=== PATIENT | male | born 2000 | race Caucasian/White ===

== ENCOUNTER → 2021-03-09 10:23 | Outpatient (CLI) | payer OTHER, SELFPAY ==
[2021-03-09 15:15] LABS: Influenza Control Positive
[2021-03-09 21:02] LABS: SARS-CoV-2 RNA PCR Negative
== END ==
PROVIDERS: PCP Family Medicine; Visit Provider Physician Assistant
DX: R50.9 Fever, unspecified (principal); Z20.822 Contact with and (suspected) exposure to COVID-19
CPT/HCPCS: 87804; C9803; U0003; U0005

== ENCOUNTER 2021-12-15 22:01 | Emergency (ER) | payer OTHER, SELFPAY ==
[2021-12-15 22:21] VITALS: BP 136/71; PULSE 110; RESP 20; TEMP 36.6; O2SAT 100
[2021-12-16] MEDS: ACETAMINOPHEN 500 MG TABLET 1000 MG PO (00:59)
--- NOTE | 2021-12-16 01:07 | ED.URI ---
HPI - URI/Sore Throat General Chief Complaint: Upper Respiratory Infection Stated Complaint: cold/flu Time Seen by Provider: 12/16/21 00:04 History of Present Illness HPI Narrative: This is a 21-year-old male with reported history of asthma, presenting the emergency department complaining of myalgias and malaise for the past day. He reports that his parents are recently diagnosed with COVID and he believes he has the same. He complains of generalized weakness, muscle aches and fatigue. He denies loss of consciousness, chest pain, shortness of breath, or diarrhea. Related Data Home Medications Medication Instructions Recorded Confirmed desvenlafaxine succinate 50 mg 50 mg PO DAILY 10/15/21 10/15/21 tablet,extended release 24 hr (Pristiq) Allergies Allergy/AdvReac Type Severity Reaction Status Date / Time No Known Allergies Allergy Mild Verified 10/15/21 11:20 methylphenidate Allergy Unknown Unknown Verified 10/15/21 11:20 Review of Systems Review of Systems: CONSTITUTIONAL: Fatigue, fevers and chills denies or sweats. EYES: Denies visual changes, redness, or discharge. ENT: Denies rhinorrhea, congestion, sore throat, or otalgia. CARDIOVASCULAR: Denies chest pain, palpitations, or edema. RESPIRATORY: Denies cough or dyspnea. GASTROINTESTINAL: Denies abdominal pain, nausea, vomiting, or diarrhea. GENITOURINARY: Denies dysuria or hematuria. SKIN: Denies rash or itching. MUSCULOSKELETAL: Denies back pain, joint pain, or myalgia. NEUROLOGIC: Denies headache, numbness, dizziness, or weakness. PSYCHIATRIC: Denies anxiety or depression. [facility] Past Medical History Medical History (Updated 12/17/21 @ 00:00 by Angelina Toledo) Vitamin D deficiency Family History Family History Mother Patient's mother is in good health Father Patient's father is in good health Social History Social History (Updated 10/15/21 @ 11:19 by Juana Crawford [facility]) Smoking status: Never smoker Second hand tobacco smoke exposure: No Alcohol intake: never Substance use: never Substance use type: does not use Gender identity (if verbalized by the patient): Male Spiritual care concerns: No Agree to blood products: Yes Exam Narrative: GENERAL: Well-developed, well-nourished, appears uncomfortable HEAD: Normocephalic, atraumatic. EYES: PERRLA and EOMI. ENT: Nares clear, no rhinorrhea or epistaxis. Mucous membranes moist. Oropharynx without tonsillar hypertrophy exudate or other lesions. NECK: Supple. No adenopathy or masses. No carotid bruits or JVD CHEST: Clear to auscultation. No respiratory distress. No wheezes rales or rhonchi HEART: Regular rate and rhythm. No murmur heard. Normal peripheral pulses. ABDOMEN: Soft, nontender, nondistended, normal active bowel sounds. EXTREMITIES: Normal range of motion. No edema. SKIN: Warm, dry, no rash. NEURO: No focal deficits. Alert and oriented x3. PSYCH: Normal mood and affect. Course Vital Signs Vital signs: Vital Signs Temperature 97.9 F 12/15/21 22:21 Pulse Rate 110 H 12/15/21 22:21 Respiratory Rate 20 12/15/21 22:21 Blood Pressure 136/71 12/15/21 22:21 Pulse Oximetry 100 12/15/21 22:21 Oxygen Delivery Room Air 12/15/21 22:21 Temperature 97.9 F 12/15/21 22:21 Pulse Rate 88 12/16/21 02:15 Respiratory Rate 20 12/15/21 22:21 Blood Pressure 136/71 12/15/21 22:21 Pulse Oximetry 98 12/16/21 02:15 Oxygen Delivery Room Air 12/16/21 02:03 MDM - URI/Sore Throat MDM Narrative Medical decision making narrative: Plan: Pain control, influenza and COVID testing, reassess Differential Diagnosis Differential diagnosis: Likely influenza and other (Viral URI, COVID, other) Lab Data Labs: Lab Results 12/16/21 Range/Units 01:01 Influenza A (RT-PCR) Negative (Negative) Influenza B (RT-PCR) Negative (Negative) SARS-CoV-2 RNA (RT-PCR) Positive A
[2021-12-16 01:42] LABS: Influenza A QL RT-PCR Negative (Negative); Influenza B QL RT-PCR Negative (Negative); SARS-CoV-2 RNA PCR Positive
[2021-12-16 02:03] VITALS: O2SAT 97
[2021-12-16 02:15] VITALS: PULSE 88; O2SAT 98
== END 2021-12-16 02:17 | disposition home or self-care (01) ==
PROVIDERS: Emergency Provider Preventive Medicine Aerospace Medicine; PCP Family Medicine
DX: U07.1 COVID-19 (principal); M79.10 Myalgia, unspecified site; E55.9 Vitamin D deficiency, unspecified
CPT/HCPCS: 87502; 99283; A9270; C9803; U0003; U0005

== ENCOUNTER 2022-10-15 13:41 | Emergency (ER) | payer OTHER, SELFPAY ==
[2022-10-15 13:48] VITALS: BP 140/86; PULSE 69; RESP 20; TEMP 36.4; O2SAT 100
--- NOTE | 2022-10-15 14:00 | ED.SKABFB ---
HPI - Skin/Abscess/Foreign Bdy General Chief complaint: Skin/Abscess/Foreign Body Stated complaint: Wasp sting Time Seen by Provider: 10/15/22 13:53 Source: patient and RN notes reviewed Mode of arrival: ambulatory Limitations: no limitations History of Present Illness HPI narrative: Patient presents today complaining of wasps stings to his left hand that occurred 2 days ago when he was carrying an air conditioning unit. He was stung 3 times on the hand and 2nd finger. His hand and wrist have continued to swell since then. He has been taking Benadryl without relief. Denies shortness of breath, difficulty swallowing, facial swelling, or any additional symptoms. Related Data Home Medications Medication Instructions Recorded Confirmed desvenlafaxine succinate 50 mg 50 mg PO DAILY 10/15/21 10/15/22 tablet,extended release 24 hr (Pristiq) Allergies Allergy/AdvReac Type Severity Reaction Status Date / Time methylphenidate Allergy Unknown Unknown Verified 10/15/21 11:20 Review of Systems Review of Systems: CONSTITUTIONAL: Denies body aches, fever, chills, or sweats. EYES: Denies visual changes, redness, or discharge. ENT: Denies rhinorrhea, congestion, sore throat, or otalgia. CARDIOVASCULAR: Denies chest pain, palpitations, or edema. RESPIRATORY: Denies cough or dyspnea. GASTROINTESTINAL: Denies abdominal pain, nausea, vomiting, or diarrhea. GENITOURINARY: Denies dysuria or hematuria. SKIN: + insect stings, hand and wrist swelling MUSCULOSKELETAL: Denies back pain, joint pain, or myalgia. NEUROLOGIC: Denies headache, numbness, tingling, or weakness. PSYCH: Denies depression or anxiety. [facility] Past Medical History Medical History Vitamin D deficiency Family History Family History Mother Patient's mother is in good health Father Patient's father is in good health Social History Social History Smoking status: Never smoker Second hand tobacco smoke exposure: No Alcohol intake: never Substance use: never Substance use type: does not use Living arrangements: with family Gender identity (if verbalized by the patient): Male Spiritual care concerns: No Agree to blood products: Yes Comments At time of signature, I have reviewed and agree with nursing past medical, surgical, social and family history unless otherwise noted. Please see nursing chart for further information. There is no relevant family history pertinent to the presenting complaint Exam Narrative: GENERAL: Well-appearing, well-nourished, and in no acute distress. HEAD: Normocephalic, atraumatic. EYES: EOMI. No redness or drainage. Conjunctivae normal. ENT: Mucous membranes pink and moist. NECK: Normal AROM. CHEST: No respiratory distress. EXTREMITIES: Left hand and wrist: Patient has 1 sting to the base of the 1st finger the dorsum of the hand, 1 sting to 2nd finger, and 1 sting to the lateral 5th metacarpal. He has swelling to all 5 fingers, the entirety of the hand, and this extends past the distal wrist. Swelling is moderate. No erythema. Range of motion is limited due to swelling. Distal sensation intact in all 5 fingers. Capillary refill normal. No induration noted. No signs of bacterial infection noted. SKIN: Warm, dry. Capillary refill normal. Normal skin turgor. NEURO: No focal deficits. Alert and oriented x3. Gait steady. PSYCH: Normal affect. No signs of depression or anxiety. Course Course Level of Care: Express Care Visit Vital Signs Vital signs: Vital Signs Temperature 97.6 F 10/15/22 13:48 Pulse Rate 69 10/15/22 13:48 Respiratory Rate 20 10/15/22 13:48 Blood Pressure 140/86 10/15/22 13:48 Pulse Oximetry 100 10/15/22 13:48 Oxygen Delivery Room Air 10/15/22 13:48 Temperature
== END 2022-10-15 14:15 | disposition home or self-care (01) ==
PROVIDERS: Emergency Provider Nurse Practitioner; PCP Family Medicine
DX: T63.461A Toxic effect of venom of wasps, accidental (unintentional), initial encounter (principal)
CPT/HCPCS: 96372; 99213; G0463; J1100

== ENCOUNTER → 2023-03-15 14:32 | Outpatient (CLI) | payer OTHER, SELFPAY ==
--- NOTE | ~2023-03-15 | XR_ITS ---
EXAMINATION: XR knee LT 3V DATE: 03/15/2023 15:00 INDICATION: Left knee pain. TECHNIQUE: 3 views of left knee were obtained. COMPARISON: None. FINDINGS: Bone alignment is normal. No fracture. Joint spaces are normal. No knee joint effusion. The re is prepatellar soft tissue swelling. IMPRESSION: 1. Prepatellar soft tissue swelling, consistent with bursitis. Reviewed, dictated and finalized at location [facility] [employer]
== END ==
PROVIDERS: PCP Physician Assistant; Visit Provider Physician Assistant
DX: M25.562 Pain in left knee (principal)
CPT/HCPCS: 73562

== ENCOUNTER 2023-04-21 12:08 | Emergency (ER) | payer OTHER, SELFPAY ==
[2023-04-21 12:19] VITALS: BP 122/82; PULSE 95; RESP 20; TEMP 36.7; O2SAT 100
--- NOTE | 2023-04-21 12:49 | ED.URI ---
HPI - URI/Sore Throat General Chief Complaint: Upper Respiratory Infection Stated Complaint: Cough/Short Of Breath Time Seen by Provider: 04/21/23 12:20 Source: patient, RN notes reviewed and old records reviewed Mode of arrival: ambulatory Limitations: no limitations Related Data Allergies Allergy/AdvReac Type Severity Reaction Status Date / Time methylphenidate Allergy Unknown Unknown Verified 03/15/23 13:41 Review of Systems Review of Systems: All systems reviewed & are unremarkable except as noted in HPI and below Constitutional: Constitutional: Reports no additional constitutional complaints Eyes: Eyes: Reports no additional eye complaints ENT: Reports system reviewed and no additional complaints, except as documented Cardiovascular: Cardiovascular: Reports no additional cardiovascular complaints, Denies chest pain and Denies dyspnea Respiratory: Respiratory: Reports no additional respiratory complaints, Denies cough and Denies dyspnea Musculoskeletal: Musculoskeletal: Reports no additional musculoskeletal complaints Neurologic: Reports system reviewed and no additional complaints, except as documented Psychiatric: Psychiatric: Reports no additional psychiatric complaints PMFSH Past Medical History Medical History Vitamin D deficiency Family History Family History Mother Patient's mother is in good health Father Patient's father is in good health Social History Social History Smoking status: Never smoker Second hand tobacco smoke exposure: No Alcohol intake: never Substance use: never Substance use type: does not use Living arrangements: with family Gender identity (if verbalized by the patient): Male Spiritual care concerns: No Agree to blood products: Yes Comments At the time of my signature, I reviewed and agree with the nursing past medical, surgical, social, and family history. There is no relevant family history pertinent to the patient complaint. Exam Const: General: cooperative, healthy appearing, comfortable, no acute distress, alert and well nourished Nutritional Appearance: well nourished Orientation/consciousness: patient oriented x3 Limitations: no limitations HENMT: Head: normal to inspection Ears: external ears normal Face/Nose/Sinus: Normal external nose present, Normal nares present, normal facial exam, No erythema and No edema Face and sinus: normal facial exam, no erythema and no edema Mouth: Yes Normal oral and palatal mucosa present Eyes: General: appearance normal, both eyes and all related structures Neck: Neck: normal visual inspection, full ROM and no meningeal signs Lymphatic: no lymphadenopathy noted and no lymphedema noted Chest: Chest palpation & inspection: normal inspection of the chest Resp: Effort & Inspection: normal respiratory effort and able to speak in complete sentences Auscultation: clear to auscultation bilaterally Cardio: Jugular venous distension: no JVD Rate: regular rate Rhythm: regular rhythm Peripheral pulses: Peripheral pulses 2+ throughout Back/Spine/Pelvis: Cervical Spine: cervical ROM normal Skin: General skin exam: normal color, no rashes or lesions noted and turgor normal Neuro: General: patient oriented x3, gait normal, moves all extremities and no meningeal signs Speech: normal speech Gait exam (Neuro): Normal gait present Extrem: General: normal to inspection, full ROM and capillary refill normal Psych: Appearance: grossly normal and well kempt Course Course Emergency Course: Some parts of this dictation were generated by voice recognition software and may contain typographical and/or grammatical inaccuracies. Level of Care: Express Care Visit Vital Signs Vital signs: Vital Signs Temperature 36.7 C
== END 2023-04-21 13:08 | disposition home or self-care (01) ==
PROVIDERS: Nurse Practitioner; Emergency Provider Nurse Practitioner Family; PCP Family Medicine
DX: J32.9 Chronic sinusitis, unspecified (principal); Z20.822 Contact with and (suspected) exposure to COVID-19
CPT/HCPCS: 87081; 87426; 87804; 87880; 99213; G0463

== ENCOUNTER 2024-05-17 19:11 | Emergency (ER) | payer OTHER, SELFPAY ==
[2024-05-17 19:19] VITALS: BP 126/70; PULSE 90; RESP 18; TEMP 36.9; O2SAT 99
--- NOTE | 2024-05-17 19:28 | ED_ITS ---
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 He i mmediately cleaned the area with alcohol and took ibuprofen. Reports some shooting pain up the leg through the day. He has contacted his employer regarding the injury. He does not know if the dog is up-to-date on vaccines. He is not up-to-date on his tetanus vaccine. Related Data Allergies Allergy/AdvReac Type Severity Reaction Status Date / Time methylphenidate Allergy Unknown Unknown Verified 05/17/24 19:16 Review of Systems Review of Systems: CONSTITUTIONAL: Denies body aches, fever, chills, or sweats. EYES: Denies visual changes, redness, or discharge. ENT: Denies rhinorrhea, congestion, sore throat, or otalgia. CARDIOVASCULAR: Denies chest pain, palpitations, or edema. RESPIRATORY: Denies cough or dyspnea. GASTROINTESTINAL: Denies abdominal pain, nausea, vomiting, or diarrhea. GENITOURINARY: Denies dysuria or hematuria. SKIN: + dog bite MUSCULOSKELETAL: Denies back pain, joint pain, or myalgia. NEUROLOGIC: Denies headache, numbness, tingling, or weakness. PSYCH: Denies depression or anxiety. [facility] Past Medical History Medical History Attention deficit disorder History of Asperger's syndrome Vitamin D deficiency Family History Family History Mother Patient's mother is in good health Father Patient's father is in good health Social History Social History Smoking status: Never smoker Second hand tobacco smoke exposure: No Alcohol intake: never Substance use: never Substance use type: does not use Living arrangements: with family Gender identity (if verbalized by the patient): Male Spiritual care concerns: No Agree to blood products: Yes Comments At time of signature, I have reviewed and agree with nursing past medical, surgical, social and family history unless otherwise noted. Please see nursing chart for further information. There is no relevant family history pertinent to the presenting complaint Exam Narrative: GENERAL: Well-appearing, well-nourished, and in no acute distress. HEAD: Normocephalic, atraumatic. EYES: EOMI. No redness or drainage. Conjunctivae normal. ENT: Mucous membranes pink and moist. NECK: Normal AROM. CHEST: No respiratory distress. EXTREMITIES: 4-5mm superficial scabbed abrasion to the left calf with surrounding tenderness. No obvious surrounding erythema, ecchymosis, or edema noted. No puncture wound or laceration noted. Distal sensation intact. Capillary refill normal. Dorsiflexion and plantar flexion strong against resistance with pain to the calf with range of motion SKIN: Warm, dry, no rash. Capillary refill normal. Normal skin turgor. NEURO: No focal deficits. Alert and oriented x3. Gait steady. PSYCH: Normal affect. No signs of depression or anxiety. Course Course Level of Care: Express Care Visit Vital Signs Vital signs: Vital Signs Temperature 98.4 F 05/17/24 19:19 Pulse Rate 90 05/17/24 19:19 Respiratory Rate 18 05/17/24 19:19 Blood Pressure 126/70 05/17/24 19:19 Pulse Oximetry 99 05/17/24 19:19 Temperature 98.4 F 05/17/24 19:19 Pulse Rate 90 05/17/24 19:19 Respiratory Rate 18 05/17/24 19:19 Blood Pressure 126/70 05/17/24 19:19 Pulse Oximetry 99 05/17/24 19:19 Reviewed MDM - Animal Bite MDM Narrative Medical decision making narrative: Patient's wound has scabbed over and needs no further care. Tetanus shot updated. Will place patient on 5 days of Augmentin to ensure that the area does not become infected. Anticipatory guidance given. Differential Diagnosis Differential diagnosis: Likely bite by animal, dog bite and other (Abrasion, laceration) Critical Care Time Critical Care Time Critical Care Time: No Discharge Plan Discharge Clinical Impression: Dog bite Patient Disposition: Home, Self-Care Condition: Stable Instructions: Antibiotic Form, Animal Bite (ED) Additional Instructions: Please take the Augmentin as prescribed until gone. Monitor for any signs of infection such as redness, swelling, increased pain, or pus drainage, and seek further evaluation if you note any of these symptoms. Take Tylenol or ibuprofen for pain. Your tetanus shot has been updated today. Your blood pressure was elevated above 120/80 today at Urgent Care. This puts you above the threshold for follow up. Please schedule a followup visit with your personal physician as soon as possible, for further evaluation and treatment. Even blood pressure exceeding 120/80 may indicate pre-hypertension. Patient Language: Kiswahili Prescriptions: New amoxicillin-pot clavulanate 875-125 mg tablet 1 tablet PO Q12H 5 Days Qty: 10 0RF No Action albuterol sulfate 90 mcg/actuation HFA aerosol inhaler 1 puff inhalation Q4H PRN (Reason: shortness of breath or wheezing) Qty: 8.5 1RF dextroamphetamine-amphetamine [Adderall XR] 20 mg capsule,extended release 24hr 20 mg PO DAILY Qty: 30 0RF desvenlafaxine succinate [Pristiq] 50 mg tablet extended release 24 hr 50 mg PO DAILY Qty: 90 1RF Follow-up/Referrals: PHYSICIAN,TREE WORKER [Primary Care Provider] - Time of Disposition: 19:33
[2024-05-17] MEDS: TETANUS,DIPHTHERIA,AC PERTUSSIS ADULT (0.5 ML) BOOSTRIX IM (19:32)
== END 2024-05-17 19:46 | disposition home or self-care (01) ==
PROVIDERS: Emergency Provider Nurse Practitioner
DX: S80.812A Abrasion, left lower leg, initial encounter (principal); W54.0XXA Bitten by dog, initial encounter; Z23 Encounter for immunization; F84.5 Asperger's syndrome; F98.8 Other specified behavioral and emotional disorders with onset usually occurring in childhood and adolescence
CPT/HCPCS: 90471; 90715; 99213; G0463

== ENCOUNTER 2024-07-03 15:50 | Outpatient (CLI) | payer OTHER, SELFPAY ==
--- OUTSIDE RECORDS SUMMARY | 2024-07-03 15:54 | XMS_ITS | Clinical Summary ---
Author Organization [facility] Address [address] [place] [address] Care Team Providers Care Office Machine Embossograph Operator Name Role Phone Ashlee Sheldon MD Primary Care Provider [phone] Allergies Active Allergy Reactions Criticality Noted Date Comments Pineapple Other (see comment) 05/07/2024 Scratchy throat, no swelling Medications No known medications Encounters Date Type Department Care Team Description 05/07/2024 4:18 PM CDT - 05/07/2024 5:44 PM CDT Emergency [facility] [place] [address] David Whitmore, DO Syncope Discharge Disposition: Home or Self Care (Routine Discharge) 05/07/2024 Travel from Last 3 Months Social History Tobacco Use Types Packs/Day Years Used Date Smoking Tobacco: Never Smokeless Tobacco: Never Tobacco Cessation:Counseling Given: Not Answered Alcohol Use Standard Drinks/Week Comments Never 0 (1 standard drink = 0.6 oz pur e alcohol) Sex and Gender Information Value Date Recorded Sex Assigned at Male 05/07/2024 4:49 PM CDT Legal Sex Male 4:12 PM CDT Gender Identity Not on file Sexual Orientation Not on file Last Filed Vital Signs Vital Sign Reading Time Taken Comments Blood Pressure 118/73 05/07/2024 5:30 PM CDT Pulse 73 05/07/2024 5:30 PM CDT Temperature 36.5 C (97.7 F) 05/07/2024 4:24 PM CDT Respiratory Rate 22 05/07/2024 5:30 PM CDT Oxygen Saturation 100% 05/07/2024 5:30 PM CDT Inhaled Oxygen Concentration - - Weight 75.2 kg (165 lb 12.6 oz) 05/07/2024 4:24 PM CDT Height 182.9 cm (6') 05/07/2024 4:24 PM CDT Body Mass Index 22.48 05/07/2024 4:24 PM CDT Plan of Treatment Health Maintenance Due Date Last Done Comments Annual Physical 02/03/2004 HPV Vaccines (1 - Male 3-dos e series) 02/03/2016 Meningococcal B Vaccine (1 o f 2 - Standard) 2017 Hepatitis C 2019 DTaP, Tdap and Td Vaccines ( 1 - Tdap) 02/03/2020 Hepatitis B Vaccines (1 of 3 - 19+ 3-dose series) 02/03/2020 COVID-19 Vaccine (1 - 2023-2 5 season) 2023 Meningococcal Vaccine Aged Out No aroldo natanael eligible based on patient's age to complete this topic Pneumococcal Vaccine: Pediat rics (0 to 5 Years) and At-Risk Patients (6 to 49 Years) Aged Out No longer eligible b ased on patient's age to complete this topic RSV Immunizations Under 20 Months Aged Out No longer eligible based on patient's age to complete this topic Procedures Procedure Name Priority Date/Time Associated Diagnosis Comments COMPREHENSIVE METABOLIC PANEL STAT 05/07/2024 4:40 PM CDT CBC W/DIFF AUTOMATED STAT 05/07/2024 4:40 PM CDT ECG 12-LEAD STAT 05/07/2024 4:22 PM CDT ELECTROCARDIOGRAM REPORT Routine 025 4:22 PM CDT from Last 3 Months Results * (ABNORMAL) COMPREHENSIVE METABOLIC PANEL (05/07/2024 4:40 PM CDT) GLUCOSE 94 70 - 99 MG/DL 05/07/2024 5:15 PM CDT [facility] BUN 11 7 - 18 MG/DL 05/07/2024 5:15 PM CDT [facility] CREATININE S/P/B 0.74 0.7 - 1.3 MG/DL 05/07/2024 5:15 PM CDT [facility] SODIUM S/P/B 139 136 - 145 MMOL/L 05/07/2024 5:15 PM CDT [facility] POTASSIUM S/P/B 4.0 3.5 - 5.1 MMOL/L 05/07/2024 5:15 PM CDT [facility] CHLORIDE S/P/B 108 97 - 115 MMOL/L 05/07/2024 5:15 PM CDT [facility] CO2 27.9 21 - 32 MMOL/L 05/07/2024 5:15 PM CDT [facility] CALCIUM S/P/B 8.1(L) 8.5 - 10.1 MG/DL 05/07/2024 5:15 PM CDT [facility] BILIRUBIN TOTAL S/P/B 0.6 0.2 - 1.2 MG/DL 05/07/2024 5:15 PM CDT [facility] Comment: THIS ASSAY IS NOT RECOMMENDED FOR PATIENTS UNDERGOING TREATMENT WITH ELTROMBOPAG DUE TO THE POTENTIAL FOR FALSELY ELEVATED RESULTS. TOTAL PROTEIN S/P/B 5.0(L) 6.4 - 8.2 G/DL 05/07/2024 5:15 PM CDT [facility] ALBUMIN S/P/B 2.8(L) 3.4 - 5.0 G/DL 05/07/2024 5:15 PM CDT [facility] AST 66(H) 15 - 37 U/L 05/07/2024 5:15 PM CDT [facility] ALT 53 16 - 60 U/L 05/07/2024 5:15 PM CDT [facility] ALKALINE PHOSPHATASE S/P/B 57 50 - 136 U/L 05/07/2024 5:15 PM CDT [facility] ANION GAP 3.1 2 - 10 MMOL/L 05/07/2024 5:15 PM CDT [facility] BUN CREATININE RATIO 14.9 6 - 26 05/07/2024 5:15 PM CDT [facility] A/G RATIO 1.3 1.0 - 2.0 RATIO 05/07/2024 5:15 PM CDT [facility] GFR ESTIMATE >90 >90 ML/MIN/1.7 3 M2 05/07/2024 5:15 PM CDT [facility] Comment: NOTE: eGFR is not calculated for patients <18 years of age or gender unknown. This is an estimated GFR calculation using the new CKD EPI creatinine equation without race and so does not require a correction factor for race. This estimated GFR should not be used for calculating drug doses. 05/07/2024 4:40 PM CDT David Whitmore DO LABORATORY Final Res ult [facility] [address] [place] [id number], * (ABNORMAL) CBC W/DIFF AUTOMATED (05/07/2024 4:40 PM CDT) WBC 20.10(H) 4.5 - 11.0 x10'3/uL 05/07/2024 4:48 PM CDT [facility] RBC 5.40 4.70 - 6.10 x10'6/uL 05/07/2024 4:48 PM CDT [facility] HGB 16.6 14.0 - 18.0 G/DL 05/07/2024 4:48 PM CDT [facility] HCT 50.2 43.0 - 54.0 % 05/07/2024 4:48 PM CDT [facility] MCV 93.0 80.0 - 94.0 FL 05/07/2024 4:48 PM CDT [facility] MCH 30.7 27.0 - 31.0 PG 05/07/2024 4:48 PM CDT [facility] MCHC 33.1 32.0 - 36.0 G/DL 05/07/2024 4:48 PM CDT [facility] RDW 11.8 11.5 - 14.5 % 05/07/2024 4:48 PM CDT [facility] PLT 229 130 - 400 x10'3/uL 05/07/2024 4:48 PM CDT [facility] MPV 10.2 9.3 - 12.2 FL 05/07/2024 4:48 PM CDT [facility] DIFFERENTIAL TYPE AUTOMATED DIFFERENTIAL 05/07/2024 4:48 PM CDT [facility] NEUTROPHILS % 76.0 % 05/07/2024 4:48 PM CDT [facility] LYMPHOCYTES % 10.9 % 05/07/2024 4:48 PM CDT [facility] MONOCYTES % 6.1 % 05/07/2024 4:48 PM CDT [facility] EOSINOPHILS 6.0 % 05/07/2024 4:48 PM CDT [facility] BASOPHILS 0.5 % 05/07/2024 4:48 PM CDT [facility] IMMATURE GRANS % 0.5 % 05/08/19 4:48 PM CDT [facility] ABS. NEUTROPHILS 15.26(H) 1.80 - 7.70 x10'3/uL 05/07/2024 4:48 PM CDT [facility] ABS. LYMPHOCYTES 2.19 1.00 - 4.80 x10'3/uL 05/07/2024 4:48 PM CDT [facility] ABS. MONOCYTES 1.22(H) 0.30 - 0.82 x10'3/uL 05/07/2024 4:48 PM CDT [facility] ABS. EOSINOPHILS 1.21(H) 0.04 - 0.54 x10'3/uL 05/07/2024 4:48 PM CDT [facility] ABS. BASOPHILS 0.11(H) 0.01 - 0.08 x10'3/uL 05/07/2024 4:48 PM CDT [facility] ABS. IMMATURE GRANULOCYTES 0.11 0.00 - 0.49 x10'3/uL 05/07/2024 4:48 PM CDT [facility] 05/07/2024 4:40 PM CDT us David Whitmore DO LABORATORY Final Res ult [facility] [address] [place] [address], * ECG 12 lead (05/07/2024 4:22 PM CDT) 05/07/2024 4:22 PM CDT Narrative [facility] - 05/08/2024 8:41 AM CDT [address] Test Date: 2024-05-07 Pat Name: CARRIE GARCIA Department: 41 Room: Gender: M Field Service Representative: [id number] : 2000 Requested By: DAVID WHITMORE Order Number: [id number] Reading MD: Shon Gurrola Measurements Intervals [place] Rate: 60 P: 36 DE: 139 QRS: 80 QRSD: 105 T: 47 QT: 414 QTc: 415 Interpretive Statements SINUS RHYTHM INCOMPLETE RIGHT BUNDLE BRANCH BLOCK [90+ ms QRS DURATION, TERMINAL R IN V1/V2, 40+ ms S IN I/aVL/V4/V5/V6] No previous ECG available for comparison Procedure Note Shon Gurrola MD - 05/08/[address] [facility] [address] Test Date: 2024-05-07 Pat Name: CARRIE SEGALCHRISTIANODylon Department: 41 Room: Gender: Field Service Representative: [id number] : 2000 Requested By: DAVID WHITMORE Order Number: [id number] Reading MD: Shon Gurrola Measurements Intervals [place] Rate: 60 P: 36 DE: 139 QRS: 80 QRSD: 105 T: 47 QT: 414 QTc: 415 Interpretive Statements SINUS RHYTHM INCOMPLETE RIGHT BUNDLE BRANCH BLOCK [90+ ms QRS DURATION, TERMINAL R IN V1/V2, 40+ ms S IN I/aVL/V4/V5/V6] No previous ECG available for comparison us David Whitmore DO ECG ORDERABLES Final Res ult [facility] * EKG Reading (05/07/2024 4:22 PM CDT) David Browning DO - 05/07/2024 4:22 PM CDT David Whitmore DO 05/07/2024 5:51 PM EKG Reading Date/Time: 05/07/2024 4:22 PM Performed by: David Whitmore DO Authorized by: David Whitmore DO Interpreted by ED physician Rhythm: sinus rhythm Rate: normal BPM: 60 QRS axis: normal Conduction: incomplete RBBB ST Segments: ST segments normal Clinical impression: non-specific ECG us David Whitmore DO [facility] Final Result from Last 3 Months Insurance [facility] Care Teams Office Machine Embossograph Operator Relationship Specialty Start Date End Date Ashlee Sheldon MD [address] [place] [address] PCP - General FAMILY PRACTICE 05/07/24
--- OUTSIDE RECORDS SUMMARY | 2024-07-03 15:54 | XMS_ITS | Clinical Summary ---
Author Organization [facility] Address [address] [place] [address] Care Team Providers Care Gis Web Developer Name Role Phone Ashlee Sheldon MD Primary Care Provider [phone] Source Comments [facility],non-owned Affiliates and Associated Physician Practices is amultiple site organization consisting of ambulatory clinics and hospital sitesin [place], [place], [place] and [place]. This disclosure is being madepursuant to the Care Everywhere program and may not contain all information available regarding this patient. Last updated 17.[facility] Allergies No known active allergies Medications * Be aware that medications may not be up to date on this document. Alwaysverify current medications with the patient. desvenlafaxine succinate ER 24hr (Pristiq) 50 MG tablet Take 1 (one) tablet by mouth once daily 11/27/2023 Active amphetamine-dex troamphetamine (Adderall) 10 MG tablet Take 1 (one) tablet by mouth every morning Active Social History Tobacco Use Types Packs/Day Years Used Date Smoking Tobacco: Never Tobacco Cessation:Counseling Given: Not Answered Alcohol Use Standard Drinks/Week Comments Never 0 (1 standard drink = 0.6 oz pur e alcohol) Sex and Gender Information Value Date Recorded Sex Assigned at Not on file Legal Sex Male 5:40 AM ELECTROPLATER APPRENTICE Gender Identity Not on file Sexual Orientation Not on file Last Filed Vital Signs Vital Sign Reading Time Taken Comments Blood Pressure 114/74 01/29/2024 9:55 AM ELECTROPLATER APPRENTICE Pulse 88 01/29/2024 9:55 AM ELECTROPLATER APPRENTICE Temperature 37.1 C (98.8 F) 03/18/2016 5:47 PM ELECTROPLATER APPRENTICE Respiratory Rate 16 03/18/2016 5:47 PM ELECTROPLATER APPRENTICE Oxygen Saturation 98% 12/19/2023 2:58 PM CDT Inhaled Oxygen Concentration - - Weight 74.8 kg (165 lb) 01/29/2024 9:55 AM ELECTROPLATER APPRENTICE Height 182.9 cm (6') 01/29/2024 9:55 AM ELECTROPLATER APPRENTICE Body Mass Index 22.38 01/29/2024 9:55 AM ELECTROPLATER APPRENTICE Plan of Treatment Health Maintenance Due Date Last Done Comments HIV SCREENING 02/03/2016 HPV VACCINE (1 - Male 3-dose series) 02/03/2016 MENINGOCOCCAL (Group B) VACC INE SHARED DECISION-MAKING (1 of 2 - Standard) 2017 HEPATITIS C SCREENING 01/29/2019 DTAP/TDAP/TD VACCINES (1 - Tdap) 02/03/2020 HEPATITIS B VACCINE (1 of 3 - 19+ 3-dose series) 02/03/2020 COVID-19 VACCINE (1 - 2023-2 5 season) 2023 DEPRESSION SCREENING 02/28/2024 INFLUENZA VACCINE (Season Ended) 2024 ZOSTER VACCINE (1 of 2) 2051 HIB VACCINE Aged Out No longer eligi ble based on patient's age to complete this topic MENINGOCOCCAL GROUPS A/C/Y/W VACCINE Aged Out No longer eligible b ased on patient's age to complete this topic PNEUMOCOCCAL VACCINE Aged Out No long er eligible based on patient's age to complete this topic Insurance [place] [id number] Care Teams Gis Web Developer Relationship Specialty Start Date End Date Ashlee Sheldon MD [address] [place] [address] PCP - General Family Medicine 03/18/16
--- OUTSIDE RECORDS SUMMARY | 2024-07-03 15:54 | XMS_ITS | Clinical Summary ---
Author Organization [facility] Care Team Providers Care Medicine Worker Name Role Phone Unavailable Primary Care Provider Unavailabl e Social History Tobacco Use Types Packs/Day Years Used Date Smoking Tobacco: Never Assessed Sex and Gender Information Value Date Recorded Sex Assigned at Not on file Legal Sex Male 3:09 PM CDT Gender Identity Not on file Sexual Orientation Not on file Plan of Treatment Health Maintenance Due Date Last Done Comments Hepatitis C Virus (HCV) Screening 2000 TdaP Immunization 2000 Human Papillomavirus (HPV) Immunization (1 - Male 3-dose series) 02/03/2016 Meningococcal B Immunization (1 of 2 - Standard) 2017 Hepatitis B Immunization (1 of 3 - 19+ 3-dose series) 02/03/2020 Influenza Immunization (#1) 2023 SARS-COV-2 Immunization ( - season) 2023 Respiratory Syncytial Virus (RSV) Immunization (Adult) (1 - 1-dose 75+ series) 02/03/2076 Meningococcal Immunization (ACWY) Aged Out No longer eligible based on patient's age to complete this topic Pneumococcal Immunization Combined Aged Out No longer eligible based on patient's age to complete this topic Rotavirus Immunization Aged Out No lo nger eligible based on patient's age to complete this topic
--- NOTE | 2024-07-03 15:56 | ECG_ITS ---
Test Date: 2024-07-03 16:11:08 Measurements Intervals [place] Rate: 71 P: 69 NE: 131 QRS: 82 QRSD: 112 T: 41 QT: 372 QTc: 405 Interpretive Statements SINUS RHYTHM INCOMPLETE RIGHT BUNDLE BRANCH BLOCK [90+ ms QRS DURATION, TERMINAL R IN V1/V2, 40+ ms S IN I/aVL/V4/V5/V6] No previous ECG available for comparison Electronically Signed On 07-04-2024 10:02:40 CDT by Brayden Davenport M.D.
== END 2024-07-03 15:51 | disposition home or self-care (01) ==
LOC: ANHCARD 15:52
PROVIDERS: PCP Family Medicine; Visit Provider Student in an Organized Health Care Education/Training Program
DX: R00.2 Palpitations (principal); I45.10 Unspecified right bundle-branch block
CPT/HCPCS: 93005

== ENCOUNTER 2024-07-26 18:07 | Emergency (ER) | payer OTHER, SELFPAY ==
--- NOTE | 2024-07-26 18:13 | ED.URI ---
HPI - URI/Sore Throat General Chief Complaint: Upper Respiratory Infection Stated Complaint: Upper Respiratory Symptoms Time Seen by Provider: 07/26/24 18:09 Source: patient Mode of arrival: ambulatory Limitations: no limitations History of Present Illness HPI Narrative: Patient is a 24 year old male who presents to the clinic for complaints of nasal congestion and chest tightness for 1 week. He states he has not been taking anything [id number]. Denies any difficulty swallowing, nausea, vomiting, diarrhea, body aches, or fever. Related Data Allergies Allergy/AdvReac Type Severity Reaction Status Date / Time methylphenidate Allergy Unknown Unknown Verified 07/26/24 18:16 Review of Systems Review of Systems: CONSTITUTIONAL: Denies body aches, fever, chills, or sweats. EYES: Denies visual changes, redness, or discharge. ENT: Reports rhinorrhea and congestion. Denies sore throat or otalgia. CARDIOVASCULAR: Denies chest pain, palpitations, or edema. RESPIRATORY: Denies cough. Reports chest tightness. GASTROINTESTINAL: Denies abdominal pain, nausea, vomiting, or diarrhea. GENITOURINARY: Denies dysuria or hematuria. SKIN: Denies rash, itching, or wounds. MUSCULOSKELETAL: Denies back pain, joint pain, or myalgia. NEUROLOGIC: Denies headache, numbness, tingling, or weakness. PSYCH: Denies depression or anxiety. All systems reviewed & are unremarkable except as noted in HPI and below PMFSH Past Medical History Medical History Attention deficit disorder History of Asperger's syndrome Vitamin D deficiency Family History Family History Mother Patient's mother is in good health Father Patient's father is in good health Social History Social History Smoking status: Never smoker Second hand tobacco smoke exposure: No Alcohol intake: never Substance use: never Substance use type: does not use Living arrangements: with family Gender identity (if verbalized by the patient): Male Spiritual care concerns: No Agree to blood products: Yes Comments At time of signature, I have reviewed and agree with nursing past medical, surgical, social and family history unless otherwise noted. Please see nursing chart for further information. There is no relevant family history pertinent to the presenting complaint. Exam Narrative: GENERAL: Well-appearing, well-nourished, and in no acute distress. EYES: EOMI. No redness or drainage. Conjunctivae normal. ENT: Mucous membranes pink and moist. TMs fluid filled, but intact. No throat Erythema or tonsillar exudate, uvula midline. Nasal congestion noted. NECK: Normal AROM. Supple. No lymphadenopathy. CHEST: No respiratory distress. Clear to auscultation. HEART: Regular rate and rhythm. No murmur appreciated. Normal peripheral pulses. ABDOMEN: Soft, nontender, nondistended, normal active bowel sounds. SKIN: Warm, dry, no rash. Capillary refill normal. Normal skin turgor. NEURO: No focal deficits. Alert and oriented x3. Gait steady. PSYCH: Normal affect. No signs of depression or anxiety. Course Course Level of Care: Express Care Visit Vital Signs Vital signs: Reviewed. MDM - URI/Sore Throat MDM Narrative Medical decision making narrative: Discussed physical exam findings. Duoneb given for chest tightness. Patient states he is feeling some relief after treatment. Antibiotic given for sinobronchitis. Steroid given for inflammation. Advised supportive measures and signs/symptoms to go to the ER. Pt is appropriate for outpt treatment and follow up. Differential Diagnosis Differential diagnosis: Likely upper respiratory infection, sinusitis, viral infection and bronchitis Critical Care Time Critical Care Time Critical Care Time: No Discharge Plan Discharge Clinical Impression: Sinobronchitis Patient Disposition: Home Condition: Stable Instructions: Sinusitis (ED), Acute Bronchitis (ED) Additional Instructions: Take antibiotic as prescribed. Take Steroid as prescribed. Recommend Flonase spray and Zyrtec (or Claritin/Yumiko) Tylenol 1000mg every 8 hours as needed for pain Symptomatic treatment includes: rest, fluids, and increase humidity of the air at home. Follow up with your primary care provider in 1 week. Go to the ER for worsening symptoms or concerns. Patient Language: Belarusian Prescriptions: New prednisone 20 mg tablet 40 mg PO DAILY 5 Days Qty: 10 0RF amoxicillin-pot clavulanate 875-125 mg tablet 1 tablet PO Q12H 7 Days Qty: 14 0RF albuterol sulfate [Ventolin HFA] 90 mcg/actuation HFA aerosol inhaler 2 puff inhalation QID PRN (Reason: shortness of breath or wheezing) Qty: 6.7 0RF (DME) Space Chamber Spacer See Rx Instructions .Route Qty: 1 0RF Rx Instructions: As directed No Action albuterol sulfate 90 mcg/actuation HFA aerosol inhaler 1 puff inhalation Q4H PRN (Reason: shortness of breath or wheezing) Qty: 8.5 1RF desvenlafaxine succinate [Pristiq] 50 mg tablet extended release 24 hr 50 mg PO DAILY Qty: 90 1RF dextroamphetamine-amphetamine [Adderall XR] 15 mg capsule,extended release 24hr 15 mg PO DAILY Qty: 30 0RF Follow-up/Referrals: PHYSICIAN,ESTATE PLANNING ATTORNEY [Primary Care Provider] - Stand Alone Forms: Work/School Release IP Time of Disposition: 18:33
[2024-07-26 18:14] VITALS: BP 126/82; PULSE 99; RESP 16; TEMP 36.8; O2SAT 100
[2024-07-26] MEDS: IPRATROPIUM 0.5 MG/ALBUTEROL SULFATE 2.5 MG AMPUL.NEB 3 ML INHALATION (18:35)
== END 2024-07-26 18:48 | disposition home or self-care (01) ==
DX: J32.9 Chronic sinusitis, unspecified (principal); J40 Bronchitis, not specified as acute or chronic; F84.5 Asperger's syndrome; F98.8 Other specified behavioral and emotional disorders with onset usually occurring in childhood and adolescence
CPT/HCPCS: 94640; 99213; G0463